=== PATIENT | female | born 1950 | race Two or more races ===

== ENCOUNTER 2022-06-02 11:47 | Emergency (ER) | payer MEDICARE, MEDICAID ==
[~2022-06-02] VITALS: Ht 162.6 cm; Wt 87.0 kg
[2022-06-02 12:18] VITALS: BP 100/75
[2022-06-02 12:35] LABS: Basophils # (auto) 0.1 10 ^3/uL (0-0.2); Basophils % (auto) 0.9 % (0.0-2.0); Eosinophils # (auto) 0 10 ^3/uL (0-0.8); Eosinophils % (auto) 0.4 % (0.0-7.0); Hematocrit 45.8 % (36.0-46.0); Hemoglobin 14.7 g/dL (12.2-16.2); Lymphocytes # (auto) 1.4 10 ^3/uL (0.4-5.4); Lymphocytes % (auto) 12.5 % (10.0-50.0); Mean Corpuscular Hemoglobin 28.4 pg (28.0-32.0); Mean Corpuscular Hgb Conc. 32.2 g/dL (32.0-36.0); Mean Corpuscular Volume 88.1 fL (80.0-100.0); Monocytes # (auto) 1.3 10 ^3/uL (0-1.3); Monocytes % (auto) 11.9 % (0.0-12.0); Neutrophils # (auto) 8.5 10 ^3/uL (1.6-8.6); Neutrophils % (auto) 74.3 % (37.0-80.0); Nucleated Red Blood Cells % 0.1 %; White Blood Cell 11.4 10^3/uL (4.4-10.8)
[2022-06-02 13:12] LABS: Albumin 3.4 g/dL (3.4-5.0); Calcium 9.6 mg/dL (8.5-10.1); Potassium 3.7 mmol/L (3.5-5.1)
[2022-06-02 13:15] LABS: BUN/Creatinine Ratio 16.1; Bilirubin, Total 0.4 mg/dL (0.2-1.0)
[2022-06-02] MEDS ORDERED: SODIUM CHLORIDE 0.9% 1,000 ML IV ONE (15:30)
== END 2022-06-02 22:43 | disposition left against medical advice (07) ==
LOC: EDBD 11:47 → ER 11:47
DX: R42 Dizziness and giddiness (principal); J44.9 Chronic obstructive pulmonary disease, unspecified; I10 Essential (primary) hypertension
CPT/HCPCS: 36415; 70450; 80053; 84484; 85025; 93005

== ENCOUNTER 2025-02-20 15:16 | Inpatient (IN) | payer MEDICARE, MEDICAID ==
[~2025-02-20] VITALS: Ht 162.6 cm; Wt 110.3 kg
--- NOTE | 2025-02-20 15:40 | ED.PDOC ---
Back pain HPI HPI Comments HPI: 74 y/o F, BIBArchie, presents to the ED for CC of s/p fall injury. EMS reports, patient is coming from home where she complains of right leonard pain following fall x2days ago. EMS reports, patient was seen at [facility] yesterday (02/20/25) and was told to have a fx to her left leg; patient was placed in an immobilizer, departed, and relayed to follow up with orthopedics. Patient comments, that she was departed from the hospital without pain medications, and is here for pain management. Patient denies head injury, lacerations, open wounds, dizziness, or loss of consciousness. No other symptoms or modifying factors present at this time. Vitals Temperature: Respiratory rate: SpO2: Heart rate: Blood pressure: Past Medical History: Raynaud's, Lymphoma, HTN, DM Past Surgical History: Bone Marrow Transplant, Right Hip, Right knee Social History: Denies All HPI: Poor Historian. Patient is here for pain control. Patient requesting to be admitted to the hospital says she goes to rehab REVIEW OF SYSTEMS: CONSTITUTIONAL: Denies acute: fever, diaphoresis, chills, generalized weakness. HEAD: Denies acute: headache, photophobia Eyes: Denies acute: Double vision, vision loss, eye pain, eye discharge. EARS: Denies acute: tinnitus, hearing loss, ear discharge, ear pain, THROAT: Denies acute: sore throat, swelling, difficulty swallowing , pain with swallowing, change in voice. NECK: Denies acute: neck pain, neck swelling, stiff neck. HEART: Denies acute : chest pain, palpitations, LUNGS: Denies acute: SOB, wheezing, cough, hemoptysis ABDOMEN: Denies acute: abdominal pain, Nausea, Vomiting, diarrhea, melena , hematemesis, hematochezia SKIN: Denies acute: rash, redness, lesions, itchiness. EXTREMITIES: Denies acute: calf pain, numbness, tingling, weakness, Denies acute: Low back pain. Neuro: Denies acute: focal neurological deficit, motor or sensory focal neurological deficit, tremors, seizure like activity, confusion, dizziness, change in mental status, loss of bowel or bladder function, cauda equina like symptoms. : Denies acute: dysuria, hematuria, flank pain, increase in urinary frequency. PSYCH: Denies acute: hallucination, suicidal ideation, homicidal ideation. FEMALE: Denies acute: abnormal vaginal bleeding, foul odor, unusual discharge. PHYSICAL EXAM: General: ----mild----acute distress, awake and alert. Head: normocephalic, atraumatic. Neck: supple, trachea is midline, no swelling. Throat: Normal phonation. Eyes:, no erythema, no purulent discharge, no proptosis, no icterus. Heart: regular rate, regular rhythm, no significant murmur appreciated. Lungs: no apparent respiratory distress, Able to speak in full sentences. No wheezing, no rhonchi, no crackles. No stridors Clear to auscultation bilaterally. Abdomen: non tender to palpation, non distended, soft, no guarding, no rebound, + bowel sounds. Morbidly obese Neuro: Awake, Alert, oriented to name, self, situation, follows commands GCS=15. Speech is normal. Skin: no petechia, no purpura, no cyanosis, non-pale, not jaundice. Evaluation of the area of pain.: Patient has right lower extremity knee immobilizer. The area is tender to palpation [id number]. Patient is neurovascularly intact in the affected extremity. Makes eye contact. moves all four extremities. Face: no apparent facial droop. ED COURSE: Chief Complaint: Lower Extremity Time Seen by MD: 15:30 Primary Care Provider: MEGAN Bolivar Notes: Nurses Notes, Can Line Operator Notes, Medications, Allergies Allergies: Coded Allergies: Ibuprofen (Verified Allergy, Unknown, 02/20/25) Home Meds Reported Medications Omeprazole (Omeprazole Dr) 20 Mg Cap, 1 CAP PO DAILY 02/20/25 Information Source: Patient, Emergency Med Personnel Mode of Arrival: EMS Timing: Hours Duration: Since onset Severity: Moderate Prehospital treatment: None Onset: Fall Circumstance: Other (fall) History of: Cancer Modifying Factors: Nothing Associated signs and symptoms: None Was a procedure done? Was a procedure done?: No Back Pain Differential Dx Differential Diagnosis: Fracture, Strain, Other (dislocation, fracture, ligamental injury, compartment syndrome,) X-Ray, Labs, Meds, VS Vital Signs Date Time Temp Pulse Resp B/P (MAP) Pulse Ox O2 Delivery O2 Flow Rate FiO2 02/20/25 16:02 98.0 89 16 125/54 (77) 96 98.0 02/20/25 15:43 Room Air* 0 21 02/20/25 15:22 98.5 81 18 155/82 (106) 99 98.5 Current Medications Medications (Trade) Dose Ordered Sig/Vickie Route Start Time Stop Time Status Last Admin Acetaminophen/ Hydrocodone Bitart (Mason 5/325MG Tab) 1 tab ONCE ONCE PO 02/20/25 15:30 02/20/25 15:31 DC 02/20/25 16:[address] [address] Ph: [phone] DIAGNOSTIC IMAGING Diagnostic Imaging Report : [id number] Signed PATIENT: ELSA BUTCHER ACCT: [id number] UNIT: [id number] : 1950 LOC: ER ROOM / BED: / AGE / SEX: 74 / F ADM STATUS: REG ER SERVICE 1527 ORDERING PHYSICIAN: JOSE MIGUEL DIAL DO PROCEDURE(s): RTBFB - R TIB FIB XRAY REASON: FALL, FRACTURE ORDER NUMBER(s): [id number], ACCESSION NUMBER(s): [id number] CLINICAL INDICATION: FALL, FRACTURE TECHNIQUE: XY R TIB FIB XRAY Comparison: None FINDINGS/IMPRESSION: : There is no evidence of acute fracture or dislocation. Soft tissues are unremarkable. Right knee arthroplasty. ATED BY: JERRY HOWARD MD DICTATED DATE/TIME: 02/20/251620 SIGNED BY: JERRY HOWARD MD SIGNED DATE/TIME: 02/20/25 162 CC: [address] [address] Ph: [phone] DIAGNOSTIC IMAGING Diagnostic Imaging Report : [id number] Signed PATIENT: ELSA BUTCHER ACCT: [id number] UNIT: [id number] : 1950 LOC: OVERFLOW ROOM / BED: 1014-ER / A AGE / SEX: 74 / F ADM STATUS: ADM IN SERVICE 1740 ORDERING PHYSICIAN: HAY CORTES PROFESSOR OF BIBLICAL STUDIES PROCEDURE(s): BLDVT - BiLat Lower DVT REASON: r/o dvt ORDER NUMBER(s): [id number], ACCESSION NUMBER(s): [id number] Bilateral lower extremity venous duplex Clinical History: r/o dvt Comparison: None Technique: Duplex Doppler evaluation of the deep venous systems of both lower extremities from the common femoral veins to the popliteal veins including color Doppler and spectral/pulsed waveform analysis was performed. Findings: RIGHT SIDE: The common femoral vein demonstrates appropriate compressibility and waveform variability. There is compressibility/patency of the great saphenous vein at the proximal thigh. The femoral vein demonstrates appropriate compressibility and waveform variability. The deep femoral vein demonstrates appropriate compressibility and waveform variability. The popliteal vein was not visualized. Flow is noted in the posterior tibial vein. LEFT SIDE: The common femoral vein demonstrates appropriate compressibility and waveform variability. There is compressibility/patency of the great saphenous vein at the proximal thigh. The femoral vein demonstrates appropriate compressibility and waveform variability. The deep femoral vein demonstrates appropriate compressibility and waveform variability. The popliteal vein demonstrates appropriate compressibility and waveform variability. There is normal compressibility at the tibioperoneal trunk. Impression: No evidence of right or left femoropopliteal venous thrombosis. Right femoral vein was not visualized ATED BY: BRANT MARTINEZ MD DICTATED DATE/TIME: 02/20/251943 SIGNED BY: BRANT MARTINEZ MD SIGNED DATE/TIME: 02/20/251943 CC: [place] [address] Ph: [phone] DIAGNOSTIC IMAGING Diagnostic Imaging Report : [id number] Signed PATIENT: ELSA BUTCHER ACCT: [id number] UNIT: [id number] : 1950 LOC: ER ROOM / BED: / AGE / SEX: 74 / F ADM STATUS: REG ER SERVICE 1527 ORDERING PHYSICIAN: JOSE MIGUEL DIAL DO PROCEDURE(s): RTBFB - R TIB FIB XRAY REASON: FALL, FRACTURE ORDER NUMBER(s): [id number], ACCESSION NUMBER(s): [id number] CLINICAL INDICATION: FALL, FRACTURE TECHNIQUE: XY R TIB FIB XRAY Comparison: None FINDINGS/IMPRESSION: : There is no evidence of acute fracture or dislocation. Soft tissues are unremarkable. Right knee arthroplasty. ATED BY: JERRY HOWARD MD DICTATED DATE/TIME: 02/20/251620 SIGNED BY: JERRY HOWARD MD SIGNED DATE/TIME: 02/20/251620 CC: Time of 1ST Reevaluation: 16:00 Reevaluation 1ST: Unchanged Patient Education/Counseling: Diagnosis, Treatment Family Education/Counseling: No Family Present Comments SOCIAL SERVICE WAS CONSULTED. PATIENT REQUESTING REHAB FACILITY. PATIENT UNABLE TO AMBULATE SECONDARY TO PAIN. SHE SAID THAT SHE HAD A CT SCAN DONE YESTERDAY AT [facility] THAT SHOWED A FRACTURE. PATIENT WILL BE ADMITTED TO THE HOSPITAL UNTIL PLACEMENT. Patient presented with the above HPI.---right lower extremity pain---workup was initiated. patient was found with the above mentioned diagnosis. the following medications were ordered: please refer to order lists of meds and tests obtained by myself Dr. Dial. Patient ED course and VS have been stabilized. Patient has been reassessed in the ED and remained in a stable condition. Pertinent incidental findings were discussed with the patient and/or family. Patient/family voices understanding and is agreeable with plan. Patient has been observed in the ED adequate length of time to insure improvement/stability. Escalation of care considered: Consideration of escalation to observation or admission Our x-ray here did not show any fracture. Because we we requested records [facility] but we were unable to obtain it. Patient unable to ambulate. Patient requesting to be in rehab. Patient was ADMITTED to the medicine team for further evaluation and treatment of their presentation. All the reports of any imaging studies that were ordered by myself were reviewed by myself. Departure 1 Departure Time of Disposition: 17:24 Impression: Primary Impression: Leg pain, right Additional Impression: Unable to ambulate Disposition: ADMITTED INPATIENT Admit to: Tele Condition: Guarded Discharged With: Self Critical Care Note Critical Care Time?: No I personally scribed for JOSE MIGUEL DIAL DO ([email or web address]) on 02/20/25 at 15:40. Electronically submitted by Lacy Padilla ([email or web address]). I personally scribed for JOSE MIGUEL DIAL DO ([email or web address]) on 02/20/25 at 16:57. Electronically submitted by Lacy Padilla ([email or web address]). JOSE MIGUEL DIAL DO February 20, 2025 15:40
[2025-02-20] MEDS: HYDROcodone-ACET 5/325MG TAB PO ONE (16:02)
--- NOTE | 2025-02-20 16:23 | DVH ---
CLINICAL INDICATION: FALL, FRACTURE TECHNIQUE: XY R TIB FIB XRAY Comparison: None FINDINGS/IMPRESSION: : There is no evidence of acute fracture or dislocation. Soft tissues are unremarkable. Right knee arthroplasty.
[2025-02-20] MEDS ORDERED: NITROGLYCERIN 0.4 MG SL TAB SL PRN (17:30)
[2025-02-20] MEDS ORDERED: ACETAMINOPHEN 325 MG TAB PO PRN (17:30)
[2025-02-20] MEDS ORDERED: MORPHINE SULFATE INJ 2 MG/ml SYRG IV PRN ×2 (17:30)
[2025-02-20] MEDS ORDERED: DEXTROSE (50%) 50ML SYRG IV PRN (17:30)
[2025-02-20] MEDS ORDERED: OMEP1CAP70 PO (17:39)
--- NOTE | 2025-02-20 17:49 | DVHHP2 ---
History of Present Illness Reason for Visit: Right knee pain History of Present Illness Veronica Duke is a 74-year-old female with past medical history of hypertension, diabetes type 2, Raynaud's lymphoma, lymphoma cancer, right knee arthroplasty, BMT, and right hip replacement who presents to the ED with right lower extremity pain status post fall 2 days ago. Patient states that she was at [facility] yesterday and was told that she had a fracture and was discharged home to follow up with her PCP and rehab. Patient states that she was only given Vicodin and talked to her PCP. She is here due to pain. Upon examination patient has a right knee immobilizer. Pending patient denies any chest pain, fever, chills, lightheadedness, weakness, dizziness, recent travels, recent sick contacts, abdominal pain, nausea, vo miting, diarrhea, or shortness of breath. Patient endorses that she walks with her front wheel walker however since the injury has not walked. Cardiovascular: HTN Endocrine: Diabetes Past Medical History Raynaud's lymphoma Lymphoma cancer Past Surgical History: Other (Right knee arthroplasty, BMT, and right hip replacement) Family History: Other (Both ) Smoke: No ALCOHOL: none Drugs: None Lives: with Family Domestic Violence: Neg Review of Systems Musculoskeletal: leg pain Allergies: Coded Allergies: Ibuprofen (Verified Allergy, Unknown, 02/20/25) Exam Vital Signs Vital Signs Date Time Temp Pulse Resp B/P (MAP) Pulse Ox O2 Delivery O2 Flow Rate FiO2 02/20/25 16:02 98.0 89 16 125/54 (77) 96 98.0 02/20/25 15:43 Room Air* 0 21 General Appearance: Alert, Oriented X3, Cooperative, No acute distress HEENT: Atraumatic, PERRLA, EOMI, Mucous membr. moist/pink Respiratory: Clear to auscultation, Normal air movement Cardiovascular: Regular rate, Normal S1, Normal S2 Abdominal: Normal bowel sounds, Soft Extremities: No clubbing, No cyanosis Neuro: Normal speech, Sensation intact Psych/Mental Status: Mental status NL Labs/Xrays CLINICAL INDICATION: FALL, FRACTURE TECHNIQUE: XY R TIB FIB XRAY Comparison: None FINDINGS/IMPRESSION: : There is no evidence of acute fracture or dislocation. Soft tissues are unremarkable. Right knee arthroplasty. Assessment/Plan Assessment/Plan Assessment Right lower extremity pain status post fall 2 days ago Recent hospitalization at [facility] History of hypertension History of diabetes type 2 History of Raynaud's lymphoma History of lymphoma cancer History of right knee arthroplasty History of BMT History of hip right hip replacement Plan Admit to [facility] CBC and CMP ordered PT eval Pain management Antiemetics X-ray right knee noted Hemoglobin A1c ISS and Accu-Cheks Bilateral venous ultrasound Diet Home medications reconciled DVT prophylaxis-Lovenox PUD prophylaxis-not indicated no history of GERD or GI bleed Discussed plan of care with patient and nurse Social work-placement possible need for rehab Plan discussed with: Patient My Orders Orders - HAY CORTES CAN RUNNER Procedure Category Date Status Time Admit ADMIT 02/20/25 Transmitted 17:28 Allergies JUAN 02/20/25 In Process 17:28 Code Status CODE 02/20/25 Transmitted 17:28 Hydrocodone-Acet PHA 02/20/25 Transmitted 5/325mg Tab (Rhome 17:30 Ondansetron Hcl PHA 02/20/25 Transmitted (Zofran) 17:30 Enoxaparin Sodium PHA 02/21/25 Transmitted (Lovenox) 10:00 Complete Blood Count LAB 02/21/25 Verified 04:00 Comprehensive LAB 02/21/25 Verified Metabolic Panel 04:00 Cardiac DIET 02/20/25 Transmitted Diet-2gna,Lofat,Lochol Dinner Pt Request For Service PT 02/20/25 Logged 17:28 Acetaminophen Tablet PHA 02/20/25 Transmitted (Tylenol Tablet) 17:30 Morphine Sulfate PHA 02/20/25 Transmitted Injection 17:30 Nitroglycerin PHA 02/20/25 Transmitted Sublingual (Ntrostat 17:30 Morphine Sulfate PHA 02/20/25 Transmitted Injection 17:30 Stat Ekg For Chest JUAN 02/20/25 Transmitted Pain 17:28 Notify Md Of Changes JUAN 02/20/25 Transmitted From Base 17:28 Sheet Metal Erector For JUAN 02/20/25 Transmitted 24 Hours 17:28 Emergency Dysrhythmia JUAN 02/20/25 Transmitted Protocol 17:28 Rhythm Strips Once JUAN 02/20/25 Transmitted Every Shift 17:28 Oxygen By Nasal RT 02/20/25 Transmitted Cannula 17:28 Glucose Blood PHA 02/20/25 Transmitted (Accu-Chek Comfort 22:00 Mild Sliding Scale PHA 02/20/25 Transmitted 22:00 Dextrose 50% Syringe PHA 02/20/25 Transmitted 17:30 Hemoglobin A1c LAB 02/20/25 Transmitted 17:28 (Nf) Omeprazole PHA 02/21/25 Verified (Omeprazole ) 10:00 Date of Service: February 20, 2025 Billing Provider: HAY CORTES Common Visit Codes: [id number] INP/OBS CARE (HIGH) HAY CORTES February 20, 2025 17:49
[2025-02-20 18:10] LABS: Basophils # (auto) 0 10 ^3/uL (0-0.2); Basophils % (auto) 0.6 % (0.0-2.0); Eosinophils # (auto) 0.2 10 ^3/uL (0-0.8); Eosinophils % (auto) 3.1 % (0.0-7.0); Hematocrit 39.6 % (36.0-46.0); Hemoglobin 12.9 g/dL (12.2-16.2); Lymphocytes # (auto) 1.5 10 ^3/uL (0.4-5.4); Lymphocytes % (auto) 19.6 % (10.0-50.0); Mean Corpuscular Hemoglobin 27.3 pg (28.0-32.0); Mean Corpuscular Hgb Conc. 32.5 g/dL (32.0-36.0); Mean Corpuscular Volume 84.1 fL (80.0-100.0); Monocytes # (auto) 0.8 10 ^3/uL (0-1.3); Neutrophils # (auto) 5.3 10 ^3/uL (1.6-8.6); Neutrophils % (auto) 66.7 % (37.0-80.0); Nucleated Red Blood Cells % 0.1 %; Platelet Count (auto) 132 10^3/uL (140-450); Red Blood Cells 4.71 10^6/uL (4.0-5.20); Red Cell Distribution Width 14.8 % (11.8-14.3); White Blood Cell 7.9 10^3/uL (4.4-10.8)
[2025-02-20 18:26] LABS: Albumin 3.7 g/dL (3.2-4.8); Alkaline Phosphatase 115 U/L (46-116); Anion Gap 7 (5-15); Aspartate Aminotransferase 33 U/L (13-40); BUN/Creatinine Ratio 16.5 (10.0-20.0); Blood Urea Nitrogen 18 mg/dL (9-23); Calcium 9.3 mg/dL (8.7-10.4); Carbon Dioxide 24 mmol/L (20-31); Potassium 4.2 mmol/L (3.5-5.1); Sodium 144 mmol/L (136-145)
[2025-02-20 18:27] LABS: Bilirubin, Total 0.4 mg/dL (0.2-1.0)
[2025-02-20 18:30] LABS: Alanine Aminotransferase 45 U/L (7-40); Chloride 113 mmol/L (98-107); Glucose 135 mg/dL (74-106); Total Protein 5.6 g/dL (5.7-8.2)
[2025-02-20 19:30] VITALS: O2SAT 95
--- NOTE | 2025-02-20 19:46 | DVH ---
Bilateral lower extremity venous duplex Clinical History: r/o dvt Comparison: None Technique: Duplex Doppler evaluation of the deep venous systems of both lower extremities from the common femora l veins to the popliteal veins including color Doppler and spectral/pulsed waveform analysis was perf ormed. Findings: RIGHT SIDE: The common femoral vein demonstrates appropriate compressibility and waveform variability. There is compressibility/patency of the great saphenous vein at the proximal thigh. The femoral vein demonstrates appropriate compressibility and waveform variability. The deep femoral vein demonstrates appropriate compressibility and waveform variability. The popliteal vein was not visualized. Flow is noted in the posterior tibial vein. LEFT SIDE: The common femoral vein demonstrates appropriate compressibility and waveform variability. There is compressibility/patency of the great saphenous vein at the proximal thigh. The femoral vein demonstrates appropriate compressibility and waveform variability. The deep femoral vein demonstrates appropriate compressibility and waveform variability. The popliteal vein demonstrates appropriate compressibility and waveform variability. There is normal compressibility at the tibioperoneal trunk. Impression: No evidence of right or left femoropopliteal venous thrombosis. Right femoral vein was not visualize d
[2025-02-20 21:08] VITALS: BP 109/43; PULSE 79; RESP 19; TEMP 98.1; O2SAT 96
[2025-02-20] MEDS: InsuLIN REG 1unit/0.01ml Soln (100units/ml) SC SCH (22:00)
[2025-02-20] MEDS: ACCU-CHEK COMFORT CURVE STRIP VI SCH (22:25)
[2025-02-20] MEDS: HYDROcodone-ACET 5/325MG TAB PO PRN (22:29)
[2025-02-21] VITALS (7 sets, daily range): BP systolic 108–126; BP diastolic 47–72; PULSE 64–76; RESP 16–20; TEMP 98.1–98.7; O2SAT 94–96
[2025-02-21] MEDS: PANTOPRAZOLE 40 MG TAB PO SCH (06:26)
[2025-02-21 07:46] LABS: Basophils # (auto) 0 10 ^3/uL (0-0.2); Basophils % (auto) 0.5 % (0.0-2.0); Eosinophils # (auto) 0.3 10 ^3/uL (0-0.8); Eosinophils % (auto) 4.2 % (0.0-7.0); Hematocrit 37.2 % (36.0-46.0); Hemoglobin 12.3 g/dL (12.2-16.2); Lymphocytes # (auto) 1.7 10 ^3/uL (0.4-5.4); Lymphocytes % (auto) 25.2 % (10.0-50.0); Mean Corpuscular Hemoglobin 27.8 pg (28.0-32.0); Mean Corpuscular Hgb Conc. 33.2 g/dL (32.0-36.0); Mean Corpuscular Volume 83.8 fL (80.0-100.0); Monocytes # (auto) 0.7 10 ^3/uL (0-1.3); Neutrophils # (auto) 4.1 10 ^3/uL (1.6-8.6); Neutrophils % (auto) 60.1 % (37.0-80.0); Nucleated Red Blood Cells % 0.1 %; Platelet Count (auto) 134 10^3/uL (140-450); Red Blood Cells 4.44 10^6/uL (4.0-5.20); Red Cell Distribution Width 14.7 % (11.8-14.3); White Blood Cell 6.9 10^3/uL (4.4-10.8)
[2025-02-21 08:00] LABS: Alanine Aminotransferase 38 U/L (7-40); Albumin 3.6 g/dL (3.2-4.8); Alkaline Phosphatase 108 U/L (46-116); Anion Gap 7 (5-15); Aspartate Aminotransferase 31 U/L (13-40); BUN/Creatinine Ratio 16.3 (10.0-20.0); Blood Urea Nitrogen 15 mg/dL (9-23); Calcium 9.6 mg/dL (8.7-10.4); Carbon Dioxide 25 mmol/L (20-31); Glucose 97 mg/dL (74-106); Potassium 4.2 mmol/L (3.5-5.1); Sodium 144 mmol/L (136-145); Total Protein 5.7 g/dL (5.7-8.2)
[2025-02-21 08:01] LABS: Bilirubin, Total 0.4 mg/dL (0.2-1.0)
[2025-02-21 08:04] LABS: Chloride 112 mmol/L (98-107)
[2025-02-21] MEDS: ENOXAPARIN SOD 40 MG/0.4 ML SYRINGE SC SCH (09:51)
--- NOTE | 2025-02-21 12:56 | DVHPN2 ---
Reviewed: Care Plan, H&P, Labs, Medications, Previous Orders, Radiology Changes from previous H/P or p: No Changes Musculoskeletal: leg pain Objective Vitals Vital Signs Date Time Temp Pulse Resp B/P (MAP) Pulse Ox O2 Delivery O2 Flow Rate FiO2 02/21/25 09:00 98.5 75 20 126/56 (79) 96 98.5 02/21/25 08:00 Room Air* 0 21 Intake/Output Intake and Output 02/21/25 07:00 Intake Total 675 ml Balance 675 ml Intake Oral 675 ml # Voids 2 Medications Current Medications Medications Dose Ordered Sig/Vickie Route Start Time Stop Time Status Last Admin Dose Admin Acetaminophen/ Hydrocodone Bitart 1 tab Q4HP PRN PO 02/20/25 17:30 02/21/25 11:24 1 TAB Ondansetron HCl 4 mg Q4HP PRN IV 02/20/25 17:30 Enoxaparin Sodium 40 mg DAILY SC 02/21/25 10:00 02/21/25 09:51 40 MG Acetaminophen 650 mg Q6HP PRN PO 02/20/25 17:30 Morphine Sulfate 2 mg Q4HPRN PRN IV 02/20/25 17:30 Nitroglycerin 0.4 mg Q5MINP PRN SL 02/20/25 17:30 Morphine Sulfate 2 mg Q30M PRN IV 02/20/25 17:30 Diagnostic Test (Pha) 1 strip ACHS 02/20/25 22:00 02/21/25 11:25 1 STRIP Insulin Human Regular ACHS SC 02/20/25 22:00 Dextrose 50 ml UD PRN IV 02/20/25 17:30 Pantoprazole Sodium 40 mg DAILY@0700 PO 02/21/25 07:00 02/21/25 06:26 40 MG Laboratory Results Laboratory Tests 02/21/25 07:06 Chemistry Test 02/20/25 18:00 02/21/25 07:06 Albumin 3.7 g/dL (3.2-4.8) 3.6 g/dL (3.2-4.8) Calcium Level 9.3 mg/dL (8.7-10.4) 9.6 mg/dL (8.7-10.4) Total Protein 5.6 g/dL (5.7-8.2) L 5.7 g/dL (5.7-8.2) LFT Test 02/20/25 18:00 02/21/25 07:06 Alanine Aminotransferase (ALT) 45 U/L (7-40) H 38 U/L (7-40) Alkaline Phosphatase 115 U/L (46-116) 108 U/L (46-116) Aspartate Amino Transferase (AST) 33 U/L (13-40) 31 U/L (13-40) Total Bilirubin 0.4 mg/dL (0.2-1.0) 0.4 mg/dL (0.2-1.0) HgA1c, TSH Test 02/20/25 18:00 Hemoglobin A1c 5.4 % A1C (<5.7) Labs and/or images reviewed: Labs reviewed by me, Image(s) reviewed by me Assessment/Plan Assessment/Plan Right knee pain status post mechanical fall, x-ray rt tib-fib negative continue morphine and [place], will order CT right knee, ortho consult will be placed later History of right hip and right knee replacement Hypertension Diabetes History of lymphoma status post chemotherapy and radiation therapy, has appointment at [facility] next week for follow up DVT ruled out Time spent 65 minutes Advanced care planning time 20 mts Plan discussed with: Patient Date of Service: February 21, 2025 Billing Provider: RAUDEL FLORENTINO MD Common Visit Codes: [id number] CARE 30-74 MIN RAUDEL FLORENTINO MD February 21, 2025 12:56
[2025-02-21 22:17] LABS: Urine Bacteria None Seen /hpf (None Seen)
[2025-02-21 22:27] LABS: Urine Blood Negative /uL (Negative); Urine Clarity Turbid (Clear); Urine Color Yellow (Yellow); Urine Mucus FEW (None Seen); Urine Protein, UAD Negative (Negative); Urine Specific Gravity 1.019 (1.001-1.035); Urine Squamous Epithelial Cell FEW /hpf (<5); Urine Urobilinogen Normal (Negative); Urine WBC 39 /HPF (0-5)
[2025-02-21] MEDS: cefTRIAXone 1GM/50ML D5W 50 ML IV ONE (23:55)
[2025-02-22] VITALS (8 sets, daily range): BP systolic 114–131; BP diastolic 45–86; PULSE 68–77; RESP 16–18; TEMP 98–99.3; O2SAT 93–100
--- NOTE | 2025-02-22 08:50 | DVHPN2 ---
Progress Note - Dictate Date Seen: February 22, 2025 Medical Necessity Reason Pt with a Central, PICC or Fol: No vital signs Vital Sign Date Time Temp Pulse Resp B/P (MAP) Pulse Ox O2 Delivery O2 Flow Rate FiO2 02/22/25 05:00 98.0 71 18 115/72 (86) 95 98.0 02/21/25 20:18 Room Air* 0 21 Total Intake and Output 02/21/25 02/21/25 02/22/25 15:00 23:00 07:00 Intake Total 250 ml 490 ml Balance 250 ml 490 ml medications Current Medications Medications Dose Ordered Sig/Vickie Route Start Time Stop Time Status Last Admin Dose Admin Acetaminophen/ Hydrocodone Bitart 1 tab Q4HP PRN PO 02/20/25 17:30 02/21/25 20:08 1 TAB Ondansetron HCl 4 mg Q4HP PRN IV 02/20/25 17:30 Enoxaparin Sodium 40 mg DAILY SC 02/21/25 10:00 02/21/25 09:51 40 MG Acetaminophen 650 mg Q6HP PRN PO 02/20/25 17:30 Morphine Sulfate 2 mg Q4HPRN PRN IV 02/20/25 17:30 Nitroglycerin 0.4 mg Q5MINP PRN SL 02/20/25 17:30 Morphine Sulfate 2 mg Q30M PRN IV 02/20/25 17:30 Diagnostic Test (Pha) 1 strip ACHS 02/20/25 22:00 02/22/25 06:14 1 STRIP Insulin Human Regular ACHS SC 02/20/25 22:00 Dextrose 50 ml UD PRN IV 02/20/25 17:30 Pantoprazole Sodium 40 mg DAILY@0700 PO 02/21/25 07:00 02/22/25 06:13 40 MG Ceftriaxone Sodium 50 ml @ 100 mls/hr DAILY@09 IV 02/22/25 09:00 objective General Appearance: alert, no distress HEENT: EOMI, PERRLA, normal external inspect of ears, no icterus, no nasal drainage Neck: no carotid bruit, no jugular venous distention (JVD), no lymphadenopathy Chest: normal thorax Respiratory: clear to auscultation, normal air movement Cardiovascular: regular rate and rhythm, no diastolic murmur, no jugular venous distention (JVD), no rub, no systolic murmur Abdominal: soft, no hepatomegaly, no mass, no splenomegaly, no tenderness Genitourinary: grossly normal external Musculoskeletal: no joint tenderness, no swelling Extremities: normal pulses, no calf tenderness, no clubbing, no cyanosis, no edema Skin: no bruising, no jaundice, no rash Neurological: alert, No focal deficit laboratory and microbiology Laboratory Tests 02/21/25 07:06 Test 02/21/25 07:06 Range/Units Serum Glucose 97 74-106 mg/dL Problem List 1. Mechanical fall Monitor, PT, 2. HTN Monitor, antihypertensives 3. Diabetes Monitor, insulin ss 4. Hx lymphoma Monitor, pt surveillance at [facility] 5. Acute cystitis with hematuria Monitor, IV abx Assessment/Plan Subjective: Patient is awake and alert. Objective: Patient still complaining of right lower extremity pain. Patient was admitted status post fall. X-ray imaging has no acute process. Plan: Obtain CT of right hip, right femur, and right tibia and fibula. Continue current pain medication as tolerated. Plan discussed with: Patient, Other NAT SAMUELS NP February 22, 2025 08:50
[2025-02-22] MEDS: cefTRIAXone 1GM/50ML D5W 50 ML IV SCH (09:36)
[2025-02-22] MEDS: LORazepam 0.5 MG TAB PO PRN (16:21)
--- NOTE | 2025-02-22 16:41 | DVH ---
INDICATION: pain fall COMPARISON: None TECHNIQUE: CT of the right femur was performed without contrast. Volume transverse images were obtain ed and reconstructed in multiple planes using bone and soft tissue algorithms. Radiation Dose Information: CT Dose: CTDI volume is 21.8 mGy. Dose-length product is 1162.62 mGy*cm FINDINGS: Bones: Right hip arthroplasty. Right knee arthroplasty. Acute nondisplaced periprosthetic fracture o f the right distal femur. Proximally the fracture involves the lateral cortices of the distal femor al diaphysis. Distally it extends toward the anterior aspect of the lateral femoral condyle, although the distal extent is poorly delineated secondary to significant streak artifact from the arthroplast y. There is no evidence of hardware loosening. Soft tissues: Minimal scattered soft tissue swelling about the knee. IMPRESSION: Acute nondisplaced periprosthetic fracture along the lateral aspect of the distal femur. All CT scans at this medical facility are performed using dose modulation techniques as appropriate t o a performed exam including the following: Automated exposure control was utilized; adjustment of th e MA and/or KV according to patient size; and use of iterative reconstruction technique.
--- NOTE | 2025-02-22 18:07 | DVH ---
EXAMINATION: CT CT R TIB FIB WO CONTRAST INDICATION: pain, fall COMPARISON: None TECHNIQUE: CT of the right tibia/fibula was performed without contrast. Volume transverse images were obtained reconstructed in multiple planes using bone and soft tissue algorithms. CONTRAST: None Radiation dose: CTDI is 8.7. DLP is 393. FINDINGS: Bones: Distal right femur fracture is better appreciated on same-day CT of the femur. The tibia and fibula are intact. Right hip arthroplasty. Soft tissues: Minimal soft tissue swelling around the knee. No evidence of subcutaneous emphysema or foreign bodies. Scattered vascular calcification. IMPRESSION: No evidence of acute fracture involving the tibia or fibula.
[2025-02-23] VITALS (8 sets, daily range): BP systolic 108–133; BP diastolic 51–87; PULSE 70–82; RESP 17–18; TEMP 97.7–98.4; O2SAT 93–99
[2025-02-23 06:28] LABS: Basophils # (auto) 0 10 ^3/uL (0-0.2); Basophils % (auto) 0.4 % (0.0-2.0); Eosinophils # (auto) 0.6 10 ^3/uL (0-0.8); Eosinophils % (auto) 9.1 % (0.0-7.0); Hematocrit 39.5 % (36.0-46.0); Hemoglobin 13.2 g/dL (12.2-16.2); Lymphocytes # (auto) 2.1 10 ^3/uL (0.4-5.4); Lymphocytes % (auto) 32.3 % (10.0-50.0); Mean Corpuscular Hemoglobin 27.8 pg (28.0-32.0); Mean Corpuscular Hgb Conc. 33.5 g/dL (32.0-36.0); Monocytes # (auto) 0.6 10 ^3/uL (0-1.3); Monocytes % (auto) 9.9 % (0.0-12.0); Neutrophils # (auto) 3.1 10 ^3/uL (1.6-8.6); Neutrophils % (auto) 48.3 % (37.0-80.0); Nucleated Red Blood Cells % 0.2 %; Platelet Count (auto) 164 10^3/uL (140-450); Red Blood Cells 4.75 10^6/uL (4.0-5.20); Red Cell Distribution Width 14.6 % (11.8-14.3); White Blood Cell 6.5 10^3/uL (4.4-10.8)
[2025-02-23 06:40] LABS: Anion Gap 8 (5-15); Calcium 9.8 mg/dL (8.7-10.4); Carbon Dioxide 25 mmol/L (20-31); Potassium 4.2 mmol/L (3.5-5.1); Sodium 144 mmol/L (136-145)
[2025-02-23 06:42] LABS: Chloride 111 mmol/L (98-107)
[2025-02-23 06:46] LABS: Glucose 95 mg/dL (74-106)
[2025-02-23 06:47] LABS: BUN/Creatinine Ratio 17.8 (10.0-20.0); Blood Urea Nitrogen 19 mg/dL (9-23)
[2025-02-23] MEDS: ONDANSETRON HCL 4 MG/2 ML VIAL IV PRN (13:42)
[2025-02-23] MEDS: MORPHINE SULFATE 4 MG/ML SYR/VIAL IV PRN (13:43)
--- NOTE | 2025-02-23 15:04 | DVHPN2 ---
Progress Note - Dictate Date Seen: Feb 23, 2025 Medical Necessity Reason Pt with a Central, PICC or Fol: No vital signs Vital Sign Date Time Temp Pulse Resp B/P (MAP) Pulse Ox O2 Delivery O2 Flow Rate FiO2 02/23/25 14:12 83 18 126/55 02/23/25 13:00 98.2 93 98.2 02/23/25 08:00 Room Air* 0 21 Total Intake and Output 02/22/25 02/22/25 02/23/25 15:00 23:00 07:00 Intake Total 50 ml 350 ml 200 ml Balance 50 ml 350 ml 200 ml medications Current Medications Medications Dose Ordered Sig/Vickie Route Start Time Stop Time Status Last Admin Dose Admin Acetaminophen/ Hydrocodone Bitart 1 tab Q4HP PRN PO 02/20/25 17:30 02/22/25 22:11 1 TAB Ondansetron HCl 4 mg Q4HP PRN IV 02/20/25 17:30 02/23/25 13:42 4 MG Enoxaparin Sodium 40 mg DAILY SC 02/21/25 10:00 02/23/25 09:46 40 MG Acetaminophen 650 mg Q6HP PRN PO 02/20/25 17:30 Nitroglycerin 0.4 mg Q5MINP PRN SL 02/20/25 17:30 Morphine Sulfate 2 mg Q30M PRN IV 02/20/25 17:30 Pantoprazole Sodium 40 mg DAILY@0700 PO 02/21/25 07:00 02/23/25 06:44 40 MG Ceftriaxone Sodium 50 ml @ 100 mls/hr DAILY@09 IV 02/22/25 09:00 02/23/25 10:02 100 MLS/HR Lorazepam 0.5 mg Q8HP PRN PO 02/22/25 14:00 02/22/25 16:21 0.5 MG Morphine Sulfate 4 mg Q4HPRN PRN IV 02/23/25 12:15 02/23/25 13:43 4 MG objective General Appearance: alert, no distress HEENT: EOMI, PERRLA, normal external inspect of ears, no icterus, no nasal drainage Neck: no carotid bruit, no jugular venous distention (JVD), no lymphadenopathy Chest: normal thorax Respiratory: clear to auscultation, normal air movement Cardiovascular: regular rate and rhythm, no diastolic murmur, no jugular venous distention (JVD), no rub, no systolic murmur Abdominal: soft, no hepatomegaly, no mass, no splenomegaly, no tenderness Genitourinary: grossly normal external Musculoskeletal: no joint tenderness, no swelling Extremities: normal pulses, no calf tenderness, no clubbing, no cyanosis, no edema Skin: no bruising, no jaundice, no rash Neurological: alert, No focal deficit laboratory and microbiology Laboratory Tests 02/23/25 05:34 Test 02/23/25 05:34 Range/Units Serum Glucose 95 74-106 mg/dL Problem List 1. Mechanical fall Monitor, PT, 2. HTN Monitor, antihypertensives 3. Diabetes Monitor, insulin ss 4. Hx lymphoma Monitor, pt surveillance at [facility] 5. Acute cystitis with hematuria Monitor, IV abx Assessment/Plan Subjective: Patient is awake and alert. Objective: Patient was admitted status post mechanical fall with pain to right lower extremity. X-ray showed no acute findings; however, CT imaging revealed an acute fracture to her right femur. Pain medications have been adjusted. Patient states she is doing well and wishes to discharge to a group home facility for rehab following orthopedic evaluation and procedures. Plan: Continue current treatment. Continue antibiotics for acute cystitis. Continue pain medications as needed. Pending orthopedic evaluation. Plan discussed with: Patient, Other NAT SAMUELS NP Feb 23, 2025 15:04
[2025-02-23] MEDS ORDERED: CYCLOBENZAPRINE HCL 10 MG TAB PO PRN (15:15)
[2025-02-24] VITALS (8 sets, daily range): BP systolic 108–158; BP diastolic 55–91; PULSE 64–85; RESP 18–20; TEMP 96.8–99.1; O2SAT 93–98
--- NOTE | 2025-02-24 08:49 | DVHSR ---
APPROVED REPORT EXAM: Two-dimensional and M-mode echocardiogram with Doppler and color Doppler. Blood Pressure: 126/55 mmHg INDICATION Eval for SX RISK FACTORS Obesity: Height: 5'4", Weight: 239 DIMENSIONS LVDd4.8 (3.8-5.7cm)LA (2D)3.9 (1.9-4.0cm)Aortic Root3.3 (2.0-3.7cm) LVDs3.3 (2.5-4.0cm)LA (MM) (1.9-4.0cm)Aortic Cusp Exc1.7 (1.5-2.0cm) EF (%) 58.0 (55-70%)Rt. Atrium (1.9-4.0cm)Asc. Aorta cm IVSd0.9 (0.7-1.1cm)RV (D) (1.8-2.4cm) PWd1.2 (0.7-1.1cm) Mitral Valve MitralMitral Stenosis E wave0.75m/sMV Mean GR.mmHg A wave1.25m/sMV Peak GR.mmHg E/A ratio0.62D MVAcm2 DECEL [id number] 1/2 Timems Aortic Valve Aortic ValveAortic Stenosis V11.00m/Raghu Mean GR.4mmHg V21.43m/Raghu Peak GR.8mmHg LVOT Diameter1.7 (1.8-2.4cm)Doppler AVA1.59cm2 Tricuspid Valve TR Velocity2.64m/s [id number] Other Information Quality : LimitedRhythm : Technically limited study due to body habitus, patient lying flat unable to turn. Conclusion Left ventricle: Mild concentric left ventricular hypertrophy was seen. LVEF was 55-60%. There was no gross wall motion abnormality. Abnormal relaxation of left ventricle diastolic function was obser ezra. Right ventricle was normal-sized with normal systolic function. Both atria were normal-sized. Aortic valve was not well visualized. There was trace aortic insufficiency. There was no aortic erica nosis. There was mild mitral and tricuspid regurgitation. Pulmonary valve was not well visualized. Right ventricular systolic pressure was assessed around 31 mm Hg. There was no pericardial effusion.
--- NOTE | 2025-02-24 09:24 | DVHINCON2 ---
Date of service: Feb 24, 2025 History of Present Illness HPI Patient is a 74-year-old female who presented after a fall and right lower extremity pain and discomfort. She is found to have fracture. Primary team is concerned if the patient needs surgery for the fracture. They have called for Cardiology to evaluate for risk stratification prior to possible orthopedic surgery. Patient herself denies any previous cardiac history. Patient denies history of chest pains. Patient denies any exertional problem. Denies loss of consciousness. Mentions occasional dizziness. Home Meds Reported Medications Omeprazole (Omeprazole Dr) 20 Mg Cap, 1 CAP PO DAILY 02/20/25 Past Medical History Others Past medical history includes hypertension, diabetes mellitus, Raynaud's disease, old history of lymphoma. Patient Family History: FH: cancer G8 MOTHER, Smoker: No Hx (Negative) Alocohol: None Drugs: None Review of Systems Constitutional: No symptom reported Ears, Nose, & Throat: No symptom reported Cardiovascular: No symptom reported All Other Systems Fourteen point review of system was performed. Relevant findings as per above and as per HPI. Otherwise negative. H&P Exam Vital Signs Vital Signs Date Time Temp Pulse Resp B/P (MAP) Pulse Ox O2 Delivery O2 Flow Rate FiO2 02/24/25 08:00 70 19 93 Room Air* 0 21 02/24/25 05:00 97.7 135/69 (91) 97.7 General Appeara: Well developed Head Exam: Normal inspection Eye Exam: bilateral eye PERRL Nasal Exam: Normal inspection Mouth: Normal Inspection Pulmonary/Respiratory: Lungs clear Cardiovascular/Chest: Normal inspection, Regular rate Peripheral Pulses: 2+ carotid (R), 2+ carotid (L), 2+ femoral (R), 2+ femoral (L), 2+ dorsalis pedis (R), 2+ dorsalis pedis (L) Abdominal Exam: Normal bowel sounds, Soft Neuro/Mental St: Alert, Oriented Appearance: Appropriate appearance Eye contact/ Speech: Cooperative Labs/Xrays Labs Test 02/23/25 05:34 02/22/25 11:38 02/21/25 22:12 02/21/25 07:06 Range/Units White Blood Count 6.5 4.4-10.8 10^3/uL Red Blood Count 4.75 4.0-5.20 10^6/uL Hemoglobin 13.2 12.2-16.2 g/dL Hematocrit 39.5 36.0-46.0 % Mean Corpuscular Volume 83.0 80.0-100.0 fL Mean Corpuscular Hemoglobin 27.8 L 28.0-32.0 pg Mean Corpuscular Hemoglobin Concent 33.5 32.0-36.0 g/dL Red Cell Distribution Width 14.6 H 11.8-14.3 % Platelet Count 164 140-450 10^3/uL Mean Platelet Volume 9.1 6.9-10.8 fL Neutrophils (%) (Auto) 48.3 37.0-80.0 % Lymphocytes (%) (Auto) 32.3 10.0-50.0 % Monocytes (%) (Auto) 9.9 0.0-12.0 % Eosinophils (%) (Auto) 9.1 H 0.0-7.0 % Basophils (%) (Auto) 0.4 0.0-2.0 % Neutrophils # (Auto) 3.1 1.6-8.6 10 ^3/uL Lymphocytes # (Auto) 2.1 0.4-5.4 10 ^3/uL Monocytes # (Auto) 0.6 0-1.3 10 ^3/uL Eosinophils # (Auto) 0.6 0-0.8 10 ^3/uL Basophils # (Auto) 0 0-0.2 10 ^3/uL Nucleated Red Blood Cells 0.2 % Sodium Level 144 136-145 mmol/L Potassium Level 4.2 3.5-5.1 mmol/L Chloride Level 111 H 98-107 mmol/L Carbon Dioxide Level 25 20-31 mmol/L Anion Gap 8 5-15 Blood Urea Nitrogen 19 9-23 mg/dL Creatinine 1.07 H 0.550-1.02 mg/dL Glomerular Filtration Rate Calc 55 >90 mL/min BUN/Creatinine Ratio 17.8 10.0-20.0 Serum Glucose 95 74-106 mg/dL Calcium Level 9.8 8.7-10.4 mg/dL POC Glucose 95 70-106 mg/dl Urine Color Yellow Yellow Urine Clarity Turbid H Clear Urine pH 6.0 5.0-9.0 Urine Specific [place] 1.019 1.001-1.035 Urine Protein Negative Negative Urine Ketones Negative Negative Urine Blood Negative Negative /uL Urine Nitrite Negative Negative Urine Bilirubin Negative Negative Urine Urobilinogen Normal Negative mg/dL Urine Leukocyte Esterase 2+ Negative /uL Urine RBC 3 0 - 4 /hpf Urine Microscopic WBC 39 H 0-5 /HPF Urine Squamous Epithelial Cells Few <5 /hpf Urine Bacteria None seen None Seen /hpf Urine Mucus Few None Seen Urine Glucose Normal Normal mg/dL Total Bilirubin 0.4 0.2-1.0 mg/dL Aspartate Amino Transferase (AST) 31 13-40 U/L Alanine Aminotransferase (ALT) 38 7-40 U/L Alkaline Phosphatase 108 46-116 U/L Total Protein 5.7 5.7-8.2 g/dL Albumin 3.6 3.2-4.8 g/dL Test 02/20/25 18:00 Range/Units Hemoglobin A1c 5.4 <5.7 % A1C Assessment/Plan Plan Patient is a 74-year-old female who presented after a fall and right lower extremity pain and discomfort. She is found to have fracture. Primary team is concerned if the patient needs surgery for the fracture. They have called for Cardiology to evaluate for risk stratification prior to possible orthopedic surgery. Patient herself denies any previous cardiac history. Patient denies history of chest pains. Patient denies any exertional problem. Denies loss of consciousness. Mentions occasional dizziness. Not in acute distress. Obese. No JVD. Mucosa is pink and wet. No goiter. No carotid bruit. Lungs are clear to auscultation. Cardiac: Regular, no thrill/gallop. Abdomen is soft. There is no gross mass/hepatomegaly. There was 1+ edema bilaterally. Past medical history includes hypertension, diabetes mellitus, Raynaud's disease, old history of lymphoma. Right tibial/fibula x-ray revealed: There is no evidence of acute fracture or dislocation. Soft tissues are unremarkable. Right knee arthroplasty. Venous Doppler of lower extremities revealed: Impression: No evidence of right or left femoropopliteal venous thrombosis. Right femoral vein was not visualized Right femur CT scan revealed: IMPRESSION: Acute nondisplaced periprosthetic fracture along the lateral aspect of the distal femur. Right tibia/CVA CT scan revealed: IMPRESSION: No evidence of acute fracture involving the tibia or fibula. EKG revealed sinus rhythm with no ST-T changes, normal EKG Tele reveals sinus rhythm Echocardiogram revealed: Left ventricle: Mild concentric left ventricular hypertrophy was seen. LVEF was 55-60%. There was no gross wall motion abnormality. Abnormal relaxation of left ventricle diastolic function was observed. Right ventricle was normal-sized with normal systolic function. Both atria were normal-sized. Aortic valve was not well visualized. There was trace aortic insufficiency. There was no aortic stenosis. There was mild mitral and tricuspid regurgitation. Pulmonary valve was not well visualized. Right ventricular systolic pressure was assessed around 31 mm Hg. There was no pericardial effusion. Patient is a 74-year-old female who presented after mechanical fall and lower extremity fracture. Does occasionally feel dizzy. Cardiac etiology for syncope/loss of consciousness/fall is less likely. Cardiac-sloan does not have any past history. Does have risk factor of diabetes mellitus. Status post fall Right femoral fracture Hypertension Diabetes mellitus Old history of lymphoma Cardiac suggestion for management: Managed on telemetry Follow-up electrolytes and kidney function tests and correct abnormalities Evaluation and management of fracture as per Orthopedics/primary team Cardiac-sloan, the patient is considered low risk patient for a possible moderate risk for orthopedic surgery. Cardiac-sloan, you can proceed with surgery under appropriate intra and postoperative hemodynamic monitoring. Avoid hypotension Further evaluation and management depends on the above and clinical course Thank you for consultation A total of 75 minutes was spent reviewing the patient record, examining the patient, making a diagnostic and therapeutic plan, discussing this plan with medical personnel, following up on diagnostic studies and following the patient for clinical stability excluding any and all procedures. At least 50% of this time was spent in direct, [id number] contact. Thank you for allowing me to participate in this patient's care. Further recommendations will depend on patient's clinical course. Please do not hesitate to contact me if you have any questions or concerns. This medical document was created using electronic medical record system with [employer] computerized dictation system. Although this document has been carefully reviewed, there may still be some phonetic and typographical errors. These areas are purely typographical due to the imperfection of the software programs, and do not reflect any compromise in the patient's medical care Plan discussed with: Patient, Other (nurse) JABARI EAST MD Feb 24, 2025 09:24
--- NOTE | 2025-02-24 10:49 | DVHPN2 ---
Progress Note - Dictate Date Seen: Feb 24, 2025 Medical Necessity Reason Pt with a Central, PICC or Fol: No vital signs Vital Sign Date Time Temp Pulse Resp B/P (MAP) Pulse Ox O2 Delivery O2 Flow Rate FiO2 02/24/25 09:00 97.6 70 19 128/55 (79) 93 97.6 02/24/25 08:00 Room Air* 0 21 Total Intake and Output 02/23/25 02/23/25 02/24/25 15:00 23:00 07:00 Intake Total 50 ml 450 ml 650 ml Balance 50 ml 450 ml 650 ml medications Current Medications Medications Dose Ordered Sig/Vickie Route Start Time Stop Time Status Last Admin Dose Admin Acetaminophen/ Hydrocodone Bitart 1 tab Q4HP PRN PO 02/20/25 17:30 02/23/25 23:27 1 TAB Ondansetron HCl 4 mg Q4HP PRN IV 02/20/25 17:30 02/23/25 13:42 4 MG Enoxaparin Sodium 40 mg DAILY SC 02/21/25 10:00 02/24/25 10:40 40 MG Acetaminophen 650 mg Q6HP PRN PO 02/20/25 17:30 Nitroglycerin 0.4 mg Q5MINP PRN SL 02/20/25 17:30 Morphine Sulfate 2 mg Q30M PRN IV 02/20/25 17:30 Pantoprazole Sodium 40 mg DAILY@0700 PO 02/21/25 07:00 02/24/25 06:05 40 MG Ceftriaxone Sodium 50 ml @ 100 mls/hr DAILY@09 IV 02/22/25 09:00 02/24/25 10:41 100 MLS/HR Lorazepam 0.5 mg Q8HP PRN PO 02/22/25 14:00 02/24/25 10:40 0.5 MG Morphine Sulfate 4 mg Q4HPRN PRN IV 02/23/25 12:15 02/23/25 13:43 4 MG Cyclobenzaprine HCl 5 mg Q8HPRN PRN PO 02/23/25 15:15 objective General Appearance: alert, no distress HEENT: EOMI, PERRLA, normal external inspect of ears, no icterus, no nasal drainage Neck: no carotid bruit, no jugular venous distention (JVD), no lymphadenopathy Chest: normal thorax Respiratory: clear to auscultation, normal air movement Cardiovascular: regular rate and rhythm, no diastolic murmur, no jugular venous distention (JVD), no rub, no systolic murmur Abdominal: soft, no hepatomegaly, no mass, no splenomegaly, no tenderness Genitourinary: grossly normal external Musculoskeletal: no joint tenderness, no swelling Extremities: normal pulses, no calf tenderness, no clubbing, no cyanosis, no edema Skin: no bruising, no jaundice, no rash Neurological: alert, No focal deficit laboratory and microbiology Laboratory Tests 02/23/25 05:34 Test 02/23/25 05:34 Range/Units Serum Glucose 95 74-106 mg/dL Problem List 1. Mechanical fall Monitor, PT, 2. HTN Monitor, antihypertensives 3. Diabetes Monitor, insulin ss 4. Hx lymphoma Monitor, pt surveillance at [facility] 5. Acute cystitis with hematuria Monitor, IV abx Assessment/Plan Subjective: Patient is awake and alert. Objective: Patient was admitted status post fall. Patient sustained a right femur fracture. Still waiting to be evaluated by orthopedic surgery. Patient was seen by cardiology. Echocardiogram is pending. Patient was transferred to the telemetry floor due to syncopal episodes prior to admission. Plan: Monitor EKG. Cardiology evaluation. Orthopedic evaluation for possible surgical intervention for right femur fracture. Plan discussed with: Patient, Other NAT SAMUELS NP Feb 24, 2025 10:49
[2025-02-25] VITALS (8 sets, daily range): BP systolic 112–130; BP diastolic 60–71; PULSE 69–82; RESP 17–19; TEMP 96.6–98.6; O2SAT 92–97
--- NOTE | 2025-02-25 07:02 | DVHPN2 ---
Progress Note - Dictate Date Seen: Feb 25, 2025 Medical Necessity Reason Pt with a Central, PICC or Fol: No vital signs Vital Sign Date Time Temp Pulse Resp B/P (MAP) Pulse Ox O2 Delivery O2 Flow Rate FiO2 02/25/25 05:00 98.5 80 18 130/71 (90) 94 98.5 02/24/25 20:00 Room Air* 0 21 Total Intake and Output 02/24/25 02/24/25 02/25/25 15:00 23:00 07:00 Intake Total 50 ml 828 ml 500 ml Balance 50 ml 828 ml 500 ml medications Current Medications Medications Dose Ordered Sig/Vickie Route Start Time Stop Time Status Last Admin Dose Admin Acetaminophen/ Hydrocodone Bitart 1 tab Q4HP PRN PO 02/20/25 17:30 02/25/25 06:17 1 TAB Ondansetron HCl 4 mg Q4HP PRN IV 02/20/25 17:30 02/23/25 13:42 4 MG Enoxaparin Sodium 40 mg DAILY SC 02/21/25 10:00 02/24/25 10:40 40 MG Acetaminophen 650 mg Q6HP PRN PO 02/20/25 17:30 Nitroglycerin 0.4 mg Q5MINP PRN SL 02/20/25 17:30 Morphine Sulfate 2 mg Q30M PRN IV 02/20/25 17:30 Pantoprazole Sodium 40 mg DAILY@0700 PO 02/21/25 07:00 02/25/25 06:17 40 MG Ceftriaxone Sodium 50 ml @ 100 mls/hr DAILY@09 IV 02/22/25 09:00 02/24/25 10:41 100 MLS/HR Lorazepam 0.5 mg Q8HP PRN PO 02/22/25 14:00 02/24/25 20:59 0.5 MG Morphine Sulfate 4 mg Q4HPRN PRN IV 02/23/25 12:15 02/23/25 13:43 4 MG Cyclobenzaprine HCl 5 mg Q8HPRN PRN PO 02/23/25 15:15 laboratory and microbiology Laboratory Tests 02/23/25 05:34 Test 02/23/25 05:34 Range/Units Serum Glucose 95 74-106 mg/dL Assessment/Plan Patient is a 74-year-old female who presented after a fall and right lower extremity pain and discomfort. She is found to have fracture. Primary team is concerned if the patient needs surgery for the fracture. They have called for Cardiology to evaluate for risk stratification prior to possible orthopedic surgery. Patient herself denies any previous cardiac history. Patient denies history of chest pains. Patient denies any exertional problem. Denies loss of consciousness. Mentions occasional dizziness. Not in acute distress. Obese. No JVD. Mucosa is pink and wet. No goiter. No carotid bruit. Lungs are clear to auscultation. Cardiac: Regular, no thrill/gallop. Abdomen is soft. There is no gross mass/hepatomegaly. There was 1+ edema bilaterally. Past medical history includes hypertension, diabetes mellitus, Raynaud's disease, old history of lymphoma. Right tibial/fibula x-ray revealed: There is no evidence of acute fracture or dislocation. Soft tissues are unremarkable. Right knee arthroplasty. Venous Doppler of lower extremities revealed: Impression: No evidence of right or left femoropopliteal venous thrombosis. Right femoral vein was not visualized Right femur CT scan revealed: IMPRESSION: Acute nondisplaced periprosthetic fracture along the lateral aspect of the distal femur. Right tibia/CVA CT scan revealed: IMPRESSION: No evidence of acute fracture involving the tibia or fibula. EKG revealed sinus rhythm with no ST-T changes, normal EKG Tele reveals sinus rhythm Echocardiogram revealed: Left ventricle: Mild concentric left ventricular hypertrophy was seen. LVEF was 55-60%. There was no gross wall motion abnormality. Abnormal relaxation of left ventricle diastolic function was observed. Right ventricle was normal-sized with normal systolic function. Both atria were normal-sized. Aortic valve was not well visualized. There was trace aortic insufficiency. There was no aortic stenosis. There was mild mitral and tricuspid regurgitation. Pulmonary valve was not well visualized. Right ventricular systolic pressure was assessed around 31 mm Hg. There was no pericardial effusion. Patient is a 74-year-old female who presented after mechanical fall and lower extremity fracture. Does occasionally feel dizzy. Cardiac etiology for syncope/loss of consciousness/fall is less likely. Cardiac-sloan does not have any past history. Does have risk factor of diabetes mellitus. Status post fall Right femoral fracture Hypertension Diabetes mellitus Old history of lymphoma Cardiac suggestion for management: Manage on telemetry Follow-up electrolytes and kidney function tests and correct abnormalities Evaluation and management of fracture as per Orthopedics/primary team Cardiac-sloan, the patient is considered low risk patient for a possible moderate risk for orthopedic surgery. Cardiac-sloan, you can proceed with surgery under appropriate intra and postoperative hemodynamic monitoring. Avoid hypotension Further evaluation and management depends on the above and clinical course A total of 55 minutes was spent reviewing the patient record, examining the patient, making a diagnostic and therapeutic plan, discussing this plan with medical personnel, following up on diagnostic studies and following the patient for clinical stability excluding any and all procedures. At least 50% of this time was spent in direct, [id number] contact. Thank you for allowing me to participate in this patient's care. Further recommendations will depend on patient's clinical course. Please do not hesitate to contact me if you have any questions or concerns. This medical document was created using electronic medical record system with [employer] computerized dictation system. Although this document has been carefully reviewed, there may still be some phonetic and typographical errors. These areas are purely typographical due to the imperfection of the software programs, and do not reflect any compromise in the patient's medical care Plan discussed with: Patient, Other (nurse) JABARI EAST MD Feb 25, 2025 07:02
--- NOTE | 2025-02-25 08:03 | ECG ---
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
--- NOTE | 2025-02-25 12:10 | DVHPN2 ---
Progress Note - Dictate Date Seen: Feb 25, 2025 Medical Necessity Reason Pt with a Central, PICC or Fol: No vital signs Vital Sign Date Time Temp Pulse Resp B/P (MAP) Pulse Ox O2 Delivery O2 Flow Rate FiO2 02/25/25 09:00 96.6 78 19 123/68 (86) 93 96.6 02/25/25 08:00 Room Air* 0 21 Total Intake and Output 02/24/25 02/24/25 02/25/25 15:00 23:00 07:00 Intake Total 50 ml 828 ml 500 ml Balance 50 ml 828 ml 500 ml medications Current Medications Medications Dose Ordered Sig/Vickie Route Start Time Stop Time Status Last Admin Dose Admin Acetaminophen/ Hydrocodone Bitart 1 tab Q4HP PRN PO 02/20/25 17:30 02/25/25 06:17 1 TAB Ondansetron HCl 4 mg Q4HP PRN IV 02/20/25 17:30 02/23/25 13:42 4 MG Enoxaparin Sodium 40 mg DAILY SC 02/21/25 10:00 02/25/25 09:09 40 MG Acetaminophen 650 mg Q6HP PRN PO 02/20/25 17:30 Nitroglycerin 0.4 mg Q5MINP PRN SL 02/20/25 17:30 Morphine Sulfate 2 mg Q30M PRN IV 02/20/25 17:30 Pantoprazole Sodium 40 mg DAILY@0700 PO 02/21/25 07:00 02/25/25 06:17 40 MG Ceftriaxone Sodium 50 ml @ 100 mls/hr DAILY@09 IV 02/22/25 09:00 02/25/25 09:09 100 MLS/HR Lorazepam 0.5 mg Q8HP PRN PO 02/22/25 14:00 02/24/25 20:59 0.5 MG Morphine Sulfate 4 mg Q4HPRN PRN IV 02/23/25 12:15 02/23/25 13:43 4 MG Cyclobenzaprine HCl 5 mg Q8HPRN PRN PO 02/23/25 15:15 objective General Appearance: alert, no distress HEENT: EOMI, PERRLA, normal external inspect of ears, no icterus, no nasal drainage Neck: no carotid bruit, no jugular venous distention (JVD), no lymphadenopathy Chest: normal thorax Respiratory: clear to auscultation, normal air movement Cardiovascular: regular rate and rhythm, no diastolic murmur, no jugular venous distention (JVD), no rub, no systolic murmur Abdominal: soft, no hepatomegaly, no mass, no splenomegaly, no tenderness Genitourinary: grossly normal external Musculoskeletal: no joint tenderness, no swelling Extremities: normal pulses, no calf tenderness, no clubbing, no cyanosis, no edema Skin: no bruising, no jaundice, no rash Neurological: alert, No focal deficit laboratory and microbiology Laboratory Tests 02/23/25 05:34 Test 02/23/25 05:34 Range/Units Serum Glucose 95 74-106 mg/dL Problem List 1. Mechanical fall Monitor, PT, 2. HTN Monitor, antihypertensives 3. Diabetes Monitor, insulin ss 4. Hx lymphoma Monitor, pt surveillance at [facility] 5. Acute cystitis with hematuria Monitor, IV abx Assessment/Plan Subjective Patient is awake and alert. Objective Patient was admitted status post fall. Patient has a right femur fracture. Patient is to be seen by orthopedic surgeon today. I did discuss plan of care with orthopedic surgeon. Plan Continue current treatment. Labs ordered for preop. Continue pain medication as needed. Patient is wishing to be DC to SNF for rehab when appropriate. Plan discussed with: Patient, Other NAT SAMUELS NP Feb 25, 2025 12:10
[2025-02-25 13:19] LABS: Prothrombin Time 10.6 sec (9.3-11.8)
[2025-02-25 13:28] LABS: Alanine Aminotransferase 38 U/L (7-40); Albumin 3.9 g/dL (3.2-4.8); Anion Gap 9 (5-15); Aspartate Aminotransferase 25 U/L (13-40); BUN/Creatinine Ratio 12.5 (10.0-20.0); Bilirubin, Total 0.4 mg/dL (0.2-1.0); Blood Urea Nitrogen 14 mg/dL (9-23); Calcium 9.9 mg/dL (8.7-10.4); Carbon Dioxide 24 mmol/L (20-31); Glucose 85 mg/dL (74-106); Potassium 4.2 mmol/L (3.5-5.1); Sodium 141 mmol/L (136-145); Total Protein 6.5 g/dL (5.7-8.2)
[2025-02-25 13:31] LABS: Alkaline Phosphatase 157 U/L (46-116); Chloride 108 mmol/L (98-107)
--- NOTE | 2025-02-25 15:05 | DVH ---
CLINICAL INDICATION: Pain; femur fracture per CT TECHNIQUE: 4 radiographic views of the right femur were obtained. Comparison: None FINDINGS/IMPRESSION: Nondisplaced fracture of the right distal femur is visualized. Status post right hip arthroplasty.
[2025-02-25 16:10] LABS: Basophils # (auto) 0 10 ^3/uL (0-0.2); Basophils % (auto) 0.6 % (0.0-2.0); Eosinophils # (auto) 0.6 10 ^3/uL (0-0.8); Eosinophils % (auto) 8.4 % (0.0-7.0); Hematocrit 41.9 % (36.0-46.0); Hemoglobin 13.7 g/dL (12.2-16.2); Lymphocytes # (auto) 2.2 10 ^3/uL (0.4-5.4); Lymphocytes % (auto) 33.9 % (10.0-50.0); Mean Corpuscular Hemoglobin 27.4 pg (28.0-32.0); Mean Corpuscular Hgb Conc. 32.7 g/dL (32.0-36.0); Monocytes # (auto) 0.6 10 ^3/uL (0-1.3); Monocytes % (auto) 9.2 % (0.0-12.0); Neutrophils # (auto) 3.2 10 ^3/uL (1.6-8.6); Neutrophils % (auto) 47.9 % (37.0-80.0); Nucleated Red Blood Cells % 0.1 %; Platelet Count (auto) 172 10^3/uL (140-450); Red Blood Cells 4.98 10^6/uL (4.0-5.20); Red Cell Distribution Width 14.7 % (11.8-14.3); White Blood Cell 6.6 10^3/uL (4.4-10.8)
--- NOTE | 2025-02-25 19:54 | DVHINCON2 ---
Consult Note Consult Consult Note Orthopedic Consultation Note Referring Team: Hospital Medicine/Inpatient Team Consult Reason: Evaluation for right lower extremity pain status post fall Location: Inpatient --- History of Present Illness: The patient is a 74-year-old female who was admitted following a ground-level fall that occurred few days ago while sitting on the bed. She landed on her right side and has since experienced difficulty with ambulation and weight- bearing due to pain localized to the right quadriceps and right knee region. She denies any numbness, tingling, or low back pain or hip pain or other joint pain. She has a past surgical history significant for a right total knee arthroplasty (TKA) and right total hip arthroplasty (BABAK), reportedly more than 34 years ago, though she is unsure of the exact dates. She had no prior complaints of hip or knee pain before this recent fall. --- Past Medical/Surgical History: Right Total Knee Arthroplasty (34+ years ago) Right Total Hip Arthroplasty (34+ years ago) --- Physical Examination: General: Alert, cooperative elderly female, lying in bed. Right Lower Extremity: Inspection: No ecchymosis or visible swelling of the right thigh, knee, or calf Palpation: Tenderness over the right quadriceps and anterior knee, no groin ttp Range of Motion: Hip: Full and grossly intact Knee: 0 to 90 pain free; 90 to ~110 discomfort reported Patient reports this is her baseline range since TKA Neurovascular: Grossly intact distally Compartment: Right thigh and calf soft and compressible --- Imaging: X-rays of the right femur, hip, and knee: possible nondisplaced fracture of distal femur lateral aspect on CT with no hardware loosening BABAK/TKA --- Assessment: 74-year-old female with history of right BABAK and TKA presenting with right lower extremity pain after ground-level fall. possible nondisplaced fracture of distal femur lateral aspect on CT with no hardware loosening . Pain appears localized to soft tissues around the anterior thigh and global knee with preserved joint motion and intact neurovascular exam. --- Plan: Case discussed with Dr. Christie who agrees with below 1. Diagnosis: Right lower extremity contusion/sprain with history of prior BABAK/TKA, possible nondisplaced fracture of distal femur lateral aspect on CT wi th no hardware loosening BABAK/TKA 2. Weight-bearing: Toe-touch weight-bearing (TTWB) on the right with walker 3. Disposition: Discharge to [facility] Facility (SNF) per hospital team 4. Follow-up: Orthopedic clinic follow-up in 2 weeks,Repeat X-rays of right hip, femur, and knee at follow-up visit 5. Pain Management: Continue pain control per hospitalist team 6. Monitoring: Educate SNF to monitor for any increased swelling, worsening pain, fever, or signs of infection around the prosthetic joints All questions answered from patient and bedside Nurse Please contact Ortho for any changes in patient condition or concerns Plan discussed with: Patient, Other (bedside Nurse) Visit Coding Surgery Date of Service if different f: Feb 25, 2025 Billing Provider: MING DIEHL Surgery Visit Codes: 25130 - INP CONSULT <40 MIN MING DIEHL Feb 25, 2025 19:53
[2025-02-26 00:57] VITALS: BP 109/75; PULSE 77; RESP 18; TEMP 98.2; O2SAT 93
[2025-02-26 04:56] VITALS: BP 113/68; PULSE 69; RESP 17; TEMP 97.1; O2SAT 98
--- NOTE | 2025-02-26 06:59 | DVHPN2 ---
Progress Note - Dictate Date Seen: Feb 26, 2025 Medical Necessity Reason Pt with a Central, PICC or Fol: No vital signs Vital Sign Date Time Temp Pulse Resp B/P (MAP) Pulse Ox O2 Delivery O2 Flow Rate FiO2 02/26/25 04:56 97.1 69 17 113/68 (83) 98 97.1 02/25/25 20:00 Room Air* 0 21 Total Intake and Output 02/25/25 02/25/25 02/26/25 15:00 23:00 07:00 Intake Total 50 ml 520 ml 300 ml Balance 50 ml 520 ml 300 ml medications Current Medications Medications Dose Ordered Sig/Vickie Route Start Time Stop Time Status Last Admin Dose Admin Acetaminophen/ Hydrocodone Bitart 1 tab Q4HP PRN PO 02/20/25 17:30 02/25/25 21:53 1 TAB Ondansetron HCl 4 mg Q4HP PRN IV 02/20/25 17:30 02/23/25 13:42 4 MG Enoxaparin Sodium 40 mg DAILY SC 02/21/25 10:00 02/25/25 09:09 40 MG Acetaminophen 650 mg Q6HP PRN PO 02/20/25 17:30 Nitroglycerin 0.4 mg Q5MINP PRN SL 02/20/25 17:30 Morphine Sulfate 2 mg Q30M PRN IV 02/20/25 17:30 Pantoprazole Sodium 40 mg DAILY@0700 PO 02/21/25 07:00 02/26/25 06:02 40 MG Ceftriaxone Sodium 50 ml @ 100 mls/hr DAILY@09 IV 02/22/25 09:00 02/25/25 09:09 100 MLS/HR Lorazepam 0.5 mg Q8HP PRN PO 02/22/25 14:00 02/25/25 20:14 0.5 MG Morphine Sulfate 4 mg Q4HPRN PRN IV 02/23/25 12:15 02/23/25 13:43 4 MG Cyclobenzaprine HCl 5 mg Q8HPRN PRN PO 02/23/25 15:15 laboratory and microbiology Laboratory Tests 02/25/25 15:56 02/25/25 12:42 Test 02/25/25 12:42 Range/Units Serum Glucose 85 74-106 mg/dL Assessment/Plan Patient is a 74-year-old female who presented after a fall and right lower extremity pain and discomfort. She is found to have fracture. Primary team is concerned if the patient needs surgery for the fracture. They have called for Cardiology to evaluate for risk stratification prior to possible orthopedic surgery. Patient herself denies any previous cardiac history. Patient denies history of chest pains. Patient denies any exertional problem. Denies loss of consciousness. Mentions occasional dizziness. Not in acute distress. Obese. No JVD. Mucosa is pink and wet. No goiter. No carotid bruit. Lungs are clear to auscultation. Cardiac: Regular, no thrill/gallop. Abdomen is soft. There is no gross mass/hepatomegaly. There was 1+ edema bilaterally. Past medical history includes hypertension, diabetes mellitus, Raynaud's disease, old history of lymphoma. Right tibial/fibula x-ray revealed: There is no evidence of acute fracture or dislocation. Soft tissues are unremarkable. Right knee arthroplasty. Venous Doppler of lower extremities revealed: Impression: No evidence of right or left femoropopliteal venous thrombosis. Right femoral vein was not visualized Right femur CT scan revealed: IMPRESSION: Acute nondisplaced periprosthetic fracture along the lateral aspect of the distal femur. Right tibia/CVA CT scan revealed: IMPRESSION: No evidence of acute fracture involving the tibia or fibula. EKG revealed sinus rhythm with no ST-T changes, normal EKG Tele reveals sinus rhythm Echocardiogram revealed: Left ventricle: Mild concentric left ventricular hypertrophy was seen. LVEF was 55-60%. There was no gross wall motion abnormality. Abnormal relaxation of left ventricle diastolic function was observed. Right ventricle was normal-sized with normal systolic function. Both atria were normal-sized. Aortic valve was not well visualized. There was trace aortic insufficiency. There was no aortic stenosis. There was mild mitral and tricuspid regurgitation. Pulmonary valve was not well visualized. Right ventricular systolic pressure was assessed around 31 mm Hg. There was no pericardial effusion. Patient is a 74-year-old female who presented after mechanical fall and lower extremity fracture. Does occasionally feel dizzy. Cardiac etiology for syncope/loss of consciousness/fall is less likely. Cardiac-sloan does not have any past history. Does have risk factor of diabetes mellitus. Status post fall Right femoral fracture Hypertension Diabetes mellitus Old history of lymphoma Cardiac suggestion for management: Manage on telemetry Follow-up electrolytes and kidney function tests and correct abnormalities Evaluation and management of fracture as per Orthopedics/primary team Cardiac-sloan, the patient is considered low risk patient for a possible moderate risk for orthopedic surgery. Cardiac-sloan, you can proceed with surgery under appropriate intra and postoperative hemodynamic monitoring. Avoid hypotension Further evaluation and management depends on the above and clinical course Will sign off, please reconsult PRN. A total of 55 minutes was spent reviewing the patient record, examining the patient, making a diagnostic and therapeutic plan, discussing this plan with medical personnel, following up on diagnostic studies and following the patient for clinical stability excluding any and all procedures. At least 50% of this time was spent in direct, [id number] contact. Thank you for allowing me to participate in this patient's care. Further recommendations will depend on patient's clinical course. Please do not hesitate to contact me if you have any questions or concerns. This medical document was created using electronic medical record system with [employer] computerized dictation system. Although this document has been carefully reviewed, there may still be some phonetic and typographical errors. These areas are purely typographical due to the imperfection of the software programs, and do not reflect any compromise in the patient's medical care Plan discussed with: Patient, Other (nurse) JABARI EAST MD Feb 26, 2025 06:59
[2025-02-26 08:00] VITALS: PULSE 71; PULSE 72; RESP 18; O2SAT 95
[2025-02-26 08:10] VITALS: BP 143/76; PULSE 71; RESP 18; TEMP 98; O2SAT 95
[2025-02-26 12:15] VITALS: BP 133/74; PULSE 71; RESP 17; TEMP 98.4; O2SAT 98
--- NOTE | 2025-02-26 12:39 | DVHDS2 ---
Discharge Summary Date of Admission February 20, 2025 at 17:28 Date of Discharge: Feb 26, 2025 Labs/Diagnostic Data: Laboratory Results Test 02/25/25 15:56 02/25/25 12:42 02/22/25 11:38 02/21/25 22:12 White Blood Count 6.6 10^3/uL (4.4-10.8) Red Blood Count 4.98 10^6/uL (4.0-5.20) Hemoglobin 13.7 g/dL (12.2-16.2) Hematocrit 41.9 % (36.0-46.0) Mean Corpuscular Volume 84.0 fL (80.0-100.0) Mean Corpuscular Hemoglobin 27.4 pg (28.0-32.0) Mean Corpuscular Hemoglobin Concent 32.7 g/dL (32.0-36.0) Red Cell Distribution Width 14.7 % (11.8-14.3) Platelet Count 172 10^3/uL (140-450) Mean Platelet Volume 9.0 fL (6.9-10.8) Neutrophils (%) (Auto) 47.9 % (37.0-80.0) Lymphocytes (%) (Auto) 33.9 % (10.0-50.0) Monocytes (%) (Auto) 9.2 % (0.0-12.0) Eosinophils (%) (Auto) 8.4 % (0.0-7.0) Basophils (%) (Auto) 0.6 % (0.0-2.0) Neutrophils # (Auto) 3.2 10 ^3/uL (1.6-8.6) Lymphocytes # (Auto) 2.2 10 ^3/uL (0.4-5.4) Monocytes # (Auto) 0.6 10 ^3/uL (0-1.3) Eosinophils # (Auto) 0.6 10 ^3/uL (0-0.8) Basophils # (Auto) 0 10 ^3/uL (0-0.2) Nucleated Red Blood Cells 0.1 % Prothrombin Time 10.6 sec (9.3-11.8) Prothrombin Time INR 1.00 (0.9-1.15) Sodium Level 141 mmol/L (136-145) Potassium Level 4.2 mmol/L (3.5-5.1) Chloride Level 108 mmol/L (98-107) Carbon Dioxide Level 24 mmol/L (20-31) Anion Gap 9 (5-15) Blood Urea Nitrogen 14 mg/dL (9-23) Creatinine 1.12 mg/dL (0.550-1.02) Glomerular Filtration Rate Calc 52 mL/min (>90) BUN/Creatinine Ratio 12.5 (10.0-20.0) Serum Glucose 85 mg/dL (74-106) Calcium Level 9.9 mg/dL (8.7-10.4) Total Bilirubin 0.4 mg/dL (0.2-1.0) Aspartate Amino Transferase (AST) 25 U/L (13-40) Alanine Aminotransferase (ALT) 38 U/L (7-40) Alkaline Phosphatase 157 U/L (46-116) Total Protein 6.5 g/dL (5.7-8.2) Albumin 3.9 g/dL (3.2-4.8) POC Glucose 95 mg/dl (70-106) Urine Color Yellow (Yellow) Urine Clarity Turbid (Clear) Urine pH 6.0 (5.0-9.0) Urine Specific [place] 1.019 (1.001-1.035) Urine Protein Negative (Negative) Urine Ketones Negative (Negative) Urine Blood Negative /uL (Negative) Urine Nitrite Negative (Negative) Urine Bilirubin Negative (Negative) Urine Urobilinogen Normal mg/dL (Negative) Urine Leukocyte Esterase 2+ /uL (Negative) Urine RBC 3 /hpf (0 - 4) Urine Microscopic WBC 39 /HPF (0-5) Urine Squamous Epithelial Cells Few /hpf (<5) Urine Bacteria None seen /hpf (None Seen) Urine Mucus Few (None Seen) Urine Glucose Normal mg/dL (Normal) Test 02/20/25 18:00 Hemoglobin A1c 5.4 % A1C (<5.7) Other Laboratory Tests 02/25/25 15:56 02/25/25 12:42 Brief Hx & Hospital Course: Veronica Duke is a 74-year-old female with past medical history of hypertension, diabetes type 2, Raynaud's lymphoma, lymphoma cancer, right knee arthroplasty, BMT, and right hip replacement who presents to the ED with right lower extremity pain status post fall 2 days ago. Patient states that she was at [facility] yesterday and was told that she had a fracture and was discharged home to follow up with her PCP and rehab. Patient states that she was only given Vicodin and talked to her PCP. She is here due to pain. Upon examination patient has a right knee immobilizer. Pending patient denies any chest pain, fever, chills, lightheadedness, weakness, dizziness, recent travels, recent sick contacts, abdominal pain, nausea, vomiting, diarrhea, or shortness of breath. Patient endorses that she walks with her front wheel walker however since the injury has not walked. Patient was admitted on February 20, 2025 status post fall. Patient had x ray imaging done, which had no acute findings. Patients stated she could not stand or walk. CT of her right leg was done, which did show an acute fracture to her right femur near her prosthetic site. She has a previous right hip arthroplasty done by Doctor Evrin. Patient was seen and evaluated by Doctor Christie, no surgery indication at this time. Knee immobilizer was thought to not be beneficial for patient. Patient will need SNF for rehab. Patient will continue PT with toe touch weight bearing with walker to her right lower extremity. Patient will discharge to [place] [facility] under the care of Doctor Veliz. There were no complaints or new complaints upon discharge, all questions and concerns were answered. Patient was advised to return to the ER or call 911 if any headaches, dizziness, shortness of breath, chest pain, bleeding, fevers, or worsening of medical condition. Patient/Family was counseled about treatment plan, medications, possible side effects, patientverbalized understanding. All questions were answered to the best of my ability. The patient symptoms improved and they are okay to be DC. Condition at Discharge: Stable Final Diagnosis/Problems List Right femur fracture Toe touch weight bearing with walker Mechanical fall HTN Diabetes Hx lymphoma Acute cystitis with hematuria [facility]charge Disposition[facility] Facility Discharge Instruct/Medications Diet: Cardiac 2g Na,low cholest Activity: See Comment Activity comment: Toe touch weight bearing with walker Follow Up/Referral: Will need follow up 2 weeks wit ortho Discharge Statement: "Patient was advised to return to the ER or call 911 if any headaches, dizziness, shortness of breath, chest pain, abdominal pain, bleeding, fevers, or worsening of medical condition. Patient was counseled about treatment plan, medications, possible side effects, patientverbalized understanding. All questions were answered to the best of my ability. This discharge took greater then 30 minutes in planning, reviewing documentation, counseling the patient, and discussing with other team members." ASSESSMENT ASSESSMENT Assessment Right femur fracture Toe touch weight bearing with walker NAT SAMUELS [employer] Feb 26, 2025 12:39
[2025-02-26 13:45] VITALS: BP 133/74; PULSE 71; RESP 17; TEMP 98.4; O2SAT 98
== END 2025-02-26 14:51 | DRG 534 ==
LOC: ER 15:16 → EDBD 15:16 → OVERFLOW 17:28 → WEST WING 20:43
PROVIDERS: ADMIT Nurse Practitioner; ATTEND Nurse Practitioner
DX: S72.491A Other fracture of lower end of right femur, initial encounter for closed fracture (principal); N30.01 Acute cystitis with hematuria; M97.01XA Periprosthetic fracture around internal prosthetic right hip joint, initial encounter; Z68.41 Body mass index [BMI] 40.0-44.9, adult; I10 Essential (primary) hypertension; E11.9 Type 2 diabetes mellitus without complications; E66.9 Obesity, unspecified; Z92.21 Personal history of antineoplastic chemotherapy; Z92.3 Personal history of irradiation; Z96.641 Presence of right artificial hip joint; Z96.651 Presence of right artificial knee joint; Z88.6 Allergy status to analgesic agent; Z85.72 Personal history of non-Hodgkin lymphomas; W18.39XA Other fall on same level, initial encounter; Y93.89 Activity, other specified; Y92.89 Other specified places as the place of occurrence of the external cause; Y99.8 Other external cause status
CPT/HCPCS: 36415; 73590; 73700; 80048; 80053; 81001; 82962; 83036; 85025; 85610; 87086; 93005; 93306; 93970; 97110; 97163; 97530; G0378; J2405